=== PATIENT | male | born 1980 | race Caucasian/White ===

== ENCOUNTER 2020-12-23 22:52 | Emergency (ER) | payer BC ==
[~2020-12-23] VITALS: Ht 172.7 cm; Wt 81.6 kg
--- NOTE | 2020-12-24 00:30 | NUR ---
EDDY PRESENTED TO THE ER FOR FLU LIKE SYMPTOMS, FEVER, CHILLS, BODY ACHES & NAUSEA X 1 WEEK. ALSO W/ C/O R EAR PAIN. NOT VACCINATED FOR COVID. PATIENT A/O X 4, RR EVEN AND UNLABORED, NO SOB NOTED, PATIENT CONNECTED TO FAMILY DENTIST AND POX. WILL CONTINUE TO MONITOR.
[2020-12-24] MEDS ORDERED: HYDROCODONE/APAP 10/325MG TABLET ONE (00:59)
[2020-12-24] MEDS ORDERED: PSEUDOEPHEDRINE HCL 30 MG TABLET ONE (00:59)
[2020-12-24] MEDS ORDERED: ONDANSETRON 4 MG TAB.RAPDIS ONE (00:59)
[2020-12-24] MEDS: ONDANSETRON 4 MG TAB.RAPDIS SL ONE (01:04)
[2020-12-24] MEDS: PSEUDOEPHEDRINE HCL 30 MG TABLET PO ONE (01:04)
[2020-12-24] MEDS: HYDROCODONE/APAP 10/325MG TABLET PO ONE (01:04)
--- NOTE | 2020-12-24 01:10 | NUR ---
COVID AND INFLUENZA SWAB COLLECTED AND SENT TO LAB
--- NOTE | 2020-12-24 01:39 | NUR ---
CALL FROM LAB. RAPID COVID POSTITIVE.
[2020-12-24] MEDS ORDERED: HYDR-4209 PO (01:54)
[2020-12-24] MEDS ORDERED: ONDA4TAB5 PO (01:55)
[2020-12-24] MEDS ORDERED: PSEU120T57 PO (01:55)
--- NOTE | 2020-12-24 02:09 | NUR ---
Patient discharged to home in stable condition. RX and Written and verbal after care instructions given. Patient verbalizes understanding of instruction.
[2020-12-24 02:11] VITALS: BP 124/67
== END 2020-12-24 02:12 | disposition home or self-care (01) ==
LOC: ER 22:52
DX: U07.1 COVID-19 (principal); H65.91 Unspecified nonsuppurative otitis media, right ear; R11.0 Nausea
CPT/HCPCS: 71045; 87426; 87804; 99284; C9803; Q0162